=== PATIENT | male | born 1960 | race Caucasian/White ===

== ENCOUNTER 2019-08-12 08:00 | Outpatient (CLI) | payer MEDICARE | END 2019-08-12 08:01 | disposition home or self-care (01) | LOC: D.NM 08:00 | PROVIDERS: ATTEND Nurse Practitioner | DX: R93.89 Abnormal findings on diagnostic imaging of other specified body structures (principal) ==

== ENCOUNTER 2019-12-30 05:23 | Emergency (ER) | payer MEDICARE ==
[~2019-12-30] VITALS: Ht 177.8 cm; Wt 104.5 kg
[2019-12-30 05:32] VITALS: BP 128/77; Ht 177.8 cm; Wt 104.5 kg
[2019-12-30] MEDS ORDERED: RIOMET500 MG/5 M (05:43)
[2019-12-30] MEDS ORDERED: CYCLOBENZAPRINE10 MG PO (06:15)
== END 2019-12-30 06:26 | disposition home or self-care (01) ==
LOC: D.ER 05:23
DX: M54.6 Pain in thoracic spine (principal); G89.29 Other chronic pain; M62.838 Other muscle spasm; E11.9 Type 2 diabetes mellitus without complications; K21.9 Gastro-esophageal reflux disease without esophagitis; Z79.84 Long term (current) use of oral hypoglycemic drugs

== ENCOUNTER 2020-01-03 12:23 | Emergency (ER) | payer MEDICARE ==
[~2020-01-03] VITALS: Ht 177.8 cm; Wt 104.5 kg
[~2020-01-03 12:23] MED LIST: CYCLOBENZAPRINE10 MG PO; RIOMET500 MG/5 M
[2020-01-03 12:33] VITALS: Ht 177.8 cm; Wt 104.5 kg
[2020-01-03] MEDS ORDERED: GLUCOPHAGE1000 MG PO (12:35)
[2020-01-03 13:32] LABS: BASOPHILS 0.5 % (0-2); EOSINOPHILS 2.3 % (0-7); HEMATOCRIT 40.9 % (42.0-54.0); HEMOGLOBIN 14.9 g/dL (13.5-17.5); IMMATURE GRANULOCYTES 0.8 % (0-5); LYMPHOCYTES 23.9 % (15-50); MCH 32.4 pg (26.0-34.0); MCHC 36.4 g/dL (31.0-37.0); MCV 88.9 fL (80.0-100.0); MONOCYTES 9.4 % (2-11); NEUTROPHILS 63.1 % (40-80); PLATELET COUNT 268 10x3/uL (130-400); RDW 12.6 % (11.5-14.5); WBC 9.2 10x3/uL (4.8-10.8)
[2020-01-03 13:47] LABS: ALBUMIN 3.2 g/dL (3.4-5.0); BILIRUBIN - TOTAL 0.67 mg/dL (0.2-1.3); CALC OSMOLALITY 271 mosm/kg (275-300); CALCIUM 9.4 mg/dL (8.5-10.1); CARBON DIOXIDE 24.9 mmol/L (21.0-32.0); CHLORIDE - SERUM 96 mmol/L (98-107); CREATININE - SERUM 0.9 mg/dL (0.6-1.3); GLUCOSE 261 mg/dL (74-106); MAGNESIUM - SERUM 1.9 mg/dL (1.8-2.4); PROTEIN - SERUM 7.8 g/dL (6.4-8.2); SODIUM 129 mmol/L (136-145); UREA NITROGEN 24 mg/dL (7-18); eGFR NON AFRICAN AMERICAN > 90 mL/min (90-120)
[2020-01-03 13:50] LABS: ALKALINE PHOSPHATASE 124 U/L (30-120); ALT (SGPT) 36 U/L (10-68)
[2020-01-03 13:51] LABS: POTASSIUM - SERUM 4.4 mmol/L (3.5-5.1)
[2020-01-03 13:51] LABS: BILIRUBIN NEGATIVE (NEGATIVE); GLUCOSE 1000 mg/dL (NEGATIVE); KETONE NEGATIVE (NEGATIVE); NITRITE NEGATIVE (NEGATIVE); UROBILINOGEN NORMAL (NORMAL)
[2020-01-03 13:52] LABS: AMYLASE - SERUM 21 U/L (25-115); BACTERIA FEW /hpf (NEGATIVE); LIPASE 14 U/L (73-393); RED CELLS - URINE 0-5 /hpf (0-5); WHITE CELLS - URINE RARE /hpf (NEGATIVE)
[2020-01-03] MEDS ORDERED: CLEOCIN HCL300 MG PO (14:11)
[2020-01-03] MEDS ORDERED: KEFLEX500 MG PO (14:11)
[2020-01-03 14:27] VITALS: BP 122/68
== END 2020-01-03 14:37 | disposition home or self-care (01) ==
LOC: D.ER 12:23
PROVIDERS: Family Medicine
DX: E11.65 Type 2 diabetes mellitus with hyperglycemia (principal); L03.311 Cellulitis of abdominal wall; K21.9 Gastro-esophageal reflux disease without esophagitis; Z79.84 Long term (current) use of oral hypoglycemic drugs

== ENCOUNTER 2020-01-04 20:55 | Emergency (ER) | payer MEDICARE ==
[~2020-01-04] VITALS: Ht 177.8 cm; Wt 104.3 kg
[~2020-01-04 20:55] MED LIST changes: +CLEOCIN HCL300 MG PO; +GLUCOPHAGE1000 MG PO; +KEFLEX500 MG PO
[2020-01-04 20:59] VITALS: BP 136/91; Ht 177.8 cm; Wt 104.3 kg
== END 2020-01-04 22:04 | disposition home or self-care (01) ==
LOC: D.ER 20:55
DX: L03.311 Cellulitis of abdominal wall (principal); K21.9 Gastro-esophageal reflux disease without esophagitis; E11.9 Type 2 diabetes mellitus without complications; Z79.84 Long term (current) use of oral hypoglycemic drugs